=== PATIENT | female | born 1995 | race Caucasian/White ===

== ENCOUNTER → 2016-04-17 | Outpatient (CLI) | payer OTHER ==
[2016-04-20 14:14] LABS: CHLAMYDIA TRACH RNA*** NOT DETECTED (NOT DETECTED); GC (NEIS GONORRHOEAE)RNA** NOT DETECTED (NOT DETECTED)
== END | disposition home or self-care (01) ==
LOC: C.LABSPEC 17:12
PROVIDERS: ATTEND Obstetrics & Gynecology
DX: Z01.419 Encounter for gynecological examination (general) (routine) without abnormal findings (principal)

== ENCOUNTER → 2017-01-10 | Outpatient (CLI) | payer OTHER ==
--- NOTE | 2017-01-10 11:44 | DIAGNOSTIC IMAGING REPORT ---
L-SPINE MIN 4 VIEWS ROUTINE CLINICAL HISTORY: M54.5 low back pain COMPARISON STUDY: No previous studies for comparison. FINDINGS: No fractures or dislocations are visualized. No destructive lesions are identified. IMPRESSION: Unremarkable conventional radiographic evaluation of the lumbar spine Electronically signed by: Pablo Whitmore M.D. 01/10/2017 11:43 AM Dictated Date/Time: 01/10/2017 11:41 AM
--- NOTE | 2017-01-10 11:55 | DIAGNOSTIC IMAGING REPORT ---
SACRUM COCCYX MIN 2 VIEWS CLINICAL HISTORY: 21 years-old Female presenting with M54.5 low back pain, no trauma. TECHNIQUE: Frontal and lateral views of the sacrum and coccyx were obtained. COMPARISON: None. FINDINGS: Sacroiliac joints congruent and symmetric without evidence of erosion or degenerative change. Arcuate lines intact. Lower lumbar spine normal. No malalignment of the sacrococcygeal articulation. Slight deformity of the S5 level may represent chronic posttraumatic change. IMPRESSION: 1. Deformity of the S5 level may represent chronic posttraumatic change. Correlate with point tenderness. 2. No other evidence of acute osseous injury. Electronically signed by: Johnie Urbina M.D. 01/10/2017 11:53 AM Dictated Date/Time: 01/10/2017 11:52 AM
[2017-01-10 12:09] LABS: BASO % 0.3 %; BASO ABS # 0.02 K/uL (0-0.2); COMPLETE YES; EOS % 1.2 %; HEMATOCRIT 42.9 % (37-47); IG% 0.3 %; LYMPH % 24.7 %; LYMPH ABS # 1.64 K/uL (1.2-3.4); MEAN CELL VOLUME 92.5 fL (80-100); MEAN CORPUSCULAR HEMOGLOBIN 32.3 pg (25-34); MEAN PLATELET VOLUME 10.5 fL (7.4-10.4); MONO % 9.2 %; NEUT % 64.3 %; PLATELET COUNT 240 K/uL (130-400); RED BLOOD COUNT 4.64 M/uL (4.2-5.4); WHITE BLOOD COUNT 6.63 K/uL (4.8-10.8)
[2017-01-10 13:27] LABS: ALT/SGPT 23 U/L (12-78); AST/SGOT 15 U/L (15-37); BLOOD UREA NITROGEN 11 mg/dl (7-18); CARBON DIOXIDE 26 mmol/L (21-32); CHLORIDE 105 mmol/L (98-107); CHOLESTEROL 228 mg/dl (0-200); CREATININE 0.67 mg/dl (0.60-1.20); GLUCOSE,FASTING 83 mg/dl (70-99); SODIUM 139 mmol/L (136-145)
[2017-01-10 13:28] LABS: ALKALINE PHOSPHATASE 73 U/L (45-117); CHOLESTEROL/HDL RATIO 3.6; HDL CHOLESTEROL 64 mg/dl; LDL CHOLESTEROL CALCULATED 147 mg/dl; TRIGLYCERIDES 87 mg/dl (0-150); VERY LOW DENSITY LIPOPROT CALC 17 mg/dl
[2017-01-10 13:38] LABS: URINE APPEARANCE CLEAR (CLEAR); URINE BILIRUBIN NEG (NEG); URINE COLOR YELLOW; URINE NITRITE NEG (NEG); URINE PH 6.5 (4.5-7.5); URINE SPECIFIC GRAVITY 1.016 (1.000-1.030); UROBILINOGEN NEG (NEG)
[2017-01-10 13:47] LABS: MANUAL MICROSCOPIC REQUIRED? NO; REVIEW REQ? NO
== END | disposition home or self-care (01) ==
LOC: C.LAB 10:44
PROVIDERS: ATTEND Specialist
DX: Z00.00 Encounter for general adult medical examination without abnormal findings (principal); M54.5 Low back pain

== ENCOUNTER → 2017-01-25 | Outpatient (CLI) | payer OTHER | END | disposition home or self-care (01) | LOC: C.LABSPEC 14:41 | PROVIDERS: ATTEND Physician Assistant | DX: N89.8 Other specified noninflammatory disorders of vagina (principal) ==

== ENCOUNTER 2017-02-01 14:31 | Emergency (ER) | payer OTHER ==
[~2017-02-01] VITALS: Ht 162.6 cm; Wt 61.3 kg
[2017-02-01 14:43] VITALS: TEMP 36.8; Ht 162.6 cm; Wt 61.3 kg
[2017-02-01 15:22] LABS: BASO % 0.7 %; BASO ABS # 0.04 K/uL (0-0.2); COMPLETE YES; EOS % 0.5 %; HEMATOCRIT 41.5 % (37-47); IG% 0.2 %; LYMPH ABS # 1.83 K/uL (1.2-3.4); MEAN CORPUSCULAR HEMOGLOBIN 31.5 pg (25-34); MEAN CORPUSCULAR HGB CONC 34.2 g/dl (32-36); MEAN PLATELET VOLUME 9.5 fL (7.4-10.4); MONO % 6.8 %; NEUT % 58.8 %; PLATELET COUNT 245 K/uL (130-400); RED BLOOD COUNT 4.51 M/uL (4.2-5.4); WHITE BLOOD COUNT 5.55 K/uL (4.8-10.8)
--- NOTE | 2017-02-01 15:28 | EMERGENCY ROOM VISIT NOTE ---
History First contact with patient: 14:49 Chief Complaint: PELVIC PAIN Stated Complaint: VAGINAL CHANGES,CHILLS,CLAMMY,BACK AND PELVIC PAIN History of Present Illness The patient is a 21 year old female who presents to the Emergency Room with a main complaint of vaginal discharge for the last month. It is a yellow/green discharge. She is sexually active with one partner. She denies any fever or chills. No pain with intercourse. Her last menses was January 06. Her menses are regular. She uses control pills for contraception. The patient also complains of dizziness, shakiness and lightheadedness. The symptoms are intermittent. She denies any difficulty breathing or pain in her chest. The patient has seen multiple providers for her vaginal discharge. She was seen at to emergency departments, in addition to her JEWELRY ESTIMATOR doctor last Saturday. She has taken antibiotics for PID, UTI and was also given Diflucan for yeast infection. This did not seem to help her symptoms. The patient reports that her boyfriend is also experiencing dizziness, lightheadedness and shakiness. They do not live together, however she does spend a lot of time at his house. Review of Systems 10 system review performed and negative unless noted in HPI or below Past Medical/Surgical History Otherwise healthy Social History Smoking Status: Never Smoker Marital Status: in relationship Occupation Status: employed Current/Historical Medications Scheduled Control Pills ( Control Pills), 1 TAB PO DAILY Clotrimazole Vaginal (Clotrimazole), 1 APPLN VAGRING HS Multiple Vitamins W/ Minerals (Womens Multi Vitamin & Mi), 1 TAB PO DAILY Physical Exam Vital Signs Date Time Temp Pulse Resp B/P (MAP) Pulse Ox O2 Delivery O2 Flow Rate FiO2 02/01/17 18:17 72 16 124/72 98 Room Air 02/01/17 16:40 88 16 115/76 98 Room Air 02/01/17 15:18 116 16 130/88 98 Room Air 120 116/95 109 116/85 02/01/17 14:43 36.8 117 20 145/88 97 Room Air Physical Exam VITALS: Vitals are noted on the nurse's note and reviewed by myself. Vital signs stable. GENERAL: 81-year-old female, anxious in appearance SKIN: The skin was without rashes, erythema, edema, or bruising. HEAD: Normocephalic atraumatic. EYES: Pupils equal round and reactive to light and accommodation. Conjunctivae without injection, sclerae without icterus. Extraocular movements intact. MOUTH: Mucous membranes moist. NECK: Supple without nuchal rigidity. No lymphadenopathy. Cervical spine is nontender. No JVD. HEART: The cardiac, regular rhythm without murmurs gallops or rubs. LUNGS: Clear to auscultation bilaterally without wheezes, rales or rhonchi. No accessory muscle use. ABDOMEN: Positive bowel sounds x 4.Soft, nontender, without organomegaly. No guarding or rebound tenderness. : External genitalia free of any lesions or lacerations. Speculum exam reveals a moderate amount of white, chunky discharge in the vaginal vault. There is one area of friability on the cervix at approximately 11:00. The os is closed. Bimanual exam reveals no signs of cervical motion tenderness. MUSCULOSKELETAL: No muscle atrophy, erythema, or edema noted. Strength 5/5 throughout. NEURO: Patient was alert and oriented to person place and time. Normal sensation to touch. No focal neurological deficits. Medical Decision & Procedures ER Provider Diagnostic Interpretation: Pelvic ultrasound IMPRESSION: 1. Unremarkable sonographic appearance of the uterus and endometrium. 2. Ovaries appear normal without evidence of torsion. The above report was generated using voice recognition software. It may contain grammatical, syntax or spelling errors. Electronically signed by: Mitchell Peter M.D. 02/01/2017 4:15 PM Dictated Date/Time: 02/01/2017 4:12 PM The status of this report is Signed. Draft = Not yet reviewed or approved by Radiologist. Signed = Reviewed and approved by Radiologist. <AttendingPhy></AttendingPhy> <FamilyPhy>Soha Davis D.O.</FamilyPhy> < PrimaryPhy>Soha Davis D.O.</PrimaryPhy> <UnitNumber>[id number]</UnitNumber> <VisitNumber>[id number]</VisitNumber> <PatientName>KIRK CRAIG</ PatientName> <DateOfBirth>1995</DateOfBirth> <Location>[facility]</Location> < ServiceDate>02/01/17</ServiceDate> <MNE>ESINDI</MNE> <OrderingPhy>Ivory Kelly PA-C</OrderingPhy> <OrderingPhyMNE>f rep ord dr dewitt</OrderingPhyMNE> < DictatingPhyMNE>f rep dict dr dewitt</DictatingPhyMNE> <CCListMNE>f rep ct mne</ CCListMNE> <AdmittingPhyMNE>f pt admit dr dewitt</AdmittingPhyMNE> <AttendingPhyMNE >f pt attend dr dewitt</AttendingPhyMNE> <ConsultingPhyMNE>f pt consult dr dewitt</ConsultingPhyMNE> <FamilyPhyMNE>f pt fam dr dewitt</FamilyPhyMNE> <OtherPhyMNE>f pt other dr dewitt</OtherPhyMNE> < PrimaryPhyMNE>f pt prim care dr dewitt</PrimaryPhyMNE> <ReferringPhyMNE>f Laboratory Results 02/01/17 15:16 Red Blood Count 4.51, Mean Corpuscular Volume 92.0, Mean Corpuscular Hemoglobin 31.5, Mean Corpuscular Hemoglobin Concent 34.2, Mean Platelet Volume 9.5, Neutrophils (%) (Auto) 58.8, Lymphocytes (%) (Auto) 33.0, Monocytes (%) (Auto) 6.8, Eosinophils (%) (Auto) 0.5, Basophils (%) (Auto) 0.7, Neutrophils # (Auto) 3.26, Lymphocytes # (Auto) 1.83, Monocytes # (Auto) 0.38, Eosinophils # (Auto) 0.03, Basophils # (Auto) 0.04 02/01/17 15:16 Test 02/01/17 15:16 02/01/17 15:19 02/01/17 15:29 02/01/17 16:42 White Blood Count 5.55 K/uL (4.8-10.8) Red Blood Count 4.51 M/uL (4.2-5.4) Hemoglobin 14.2 g/dL (12.0-16.0) Hematocrit 41.5 % (37-47) Mean Corpuscular Volume 92.0 fL (80-100) Mean Corpuscular Hemoglobin 31.5 pg (25-34) Mean Corpuscular Hemoglobin Concent 34.2 g/dl (32-36) Platelet Count 245 K/uL (130-400) Mean Platelet Volume 9.5 fL (7.4-10.4) Neutrophils (%) (Auto) 58.8 % Lymphocytes (%) (Auto) 33.0 % Monocytes (%) (Auto) 6.8 % Eosinophils (%) (Auto) 0.5 % Basophils (%) (Auto) 0.7 % Neutrophils # (Auto) 3.26 K/uL (1.4-6.5) Lymphocytes # (Auto) 1.83 K/uL (1.2-3.4) Monocytes # (Auto) 0.38 K/uL (0.11-0.59) Eosinophils # (Auto) 0.03 K/uL (0-0.5) Basophils # (Auto) 0.04 K/uL (0-0.2) RDW Standard Deviation 41.3 fL (36.4-46.3) RDW Coefficient of Variation 12.3 % (11.5-14.5) Immature Granulocyte % (Auto) 0.2 % Immature Granulocyte # (Auto) 0.01 K/uL (0.00-0.02) D-Dimer 190 ug/L FEU (0-500) Anion Gap 5.0 mmol/L (3-11) Est Creatinine Clear Calc Drug Dose 104.4 ml/min Estimated GFR () 135.5 Estimated GFR (Non- 116.9 BUN/Creatinine Ratio 12.4 (10-20) Calcium Level 9.2 mg/dl (8.5-10.1) Total Bilirubin 0.3 mg/dl (0.2-1) Aspartate Amino Transf (AST/SGOT) 12 U/L (15-37) Alanine Aminotransferase (ALT/SGPT) 20 U/L (12-78) Alkaline Phosphatase 63 U/L (45-117) Total Protein 7.9 gm/dl (6.4-8.2) Albumin 4.1 gm/dl (3.4-5.0) Globulin 3.8 gm/dl (2.5-4.0) Albumin/Globulin Ratio 1.1 (0.9-2) Thyroid Stimulating Hormone (TSH) 3.040 uIu/ml (0.300-4.500) Human Chorionic Gonadotropin, Qual NEG (NEG) Lyme Disease IgG Antibody NEG (NEG) Lyme Disease IgM Antibody NEG (NEG) Urine Color YELLOW Urine Appearance CLEAR (CLEAR) Urine pH 6.0 (4.5-7.5) Urine Specific [place] 1.019 (1.000-1.030) Urine Protein NEG (NEG) Urine Glucose (UA) NEG (NEG) Urine Ketones NEG (NEG) Urine Occult Blood NEG (NEG) Urine Nitrite NEG (NEG) Urine Bilirubin NEG (NEG) Urine Urobilinogen NEG (NEG) Urine Leukocyte Esterase NEG (NEG) Carboxyhemoglobin 0.0 % [facility] Date/Time Source Procedure Growth Status 02/01/17 16:42 Cervix Swab Trichomonas Preparation - Final Complete Medications Administered Medications (Trade) Dose Ordered Sig/[place] Route Start Time Stop Time Status Last Admin Dose Admin Sodium Chloride 500 ml @ 999 mls/hr Q31M STAT IV 02/01/17 16:56 02/01/17 17:26 DC 02/01/17 16:56 999 MLS/HR ED Course Patient was seen and examined Vital signs including blood pressure were reviewed medications list was verified with patient Labs were obtained, and a saline lock was established Imaging was performed and reviewed The patient was hydrated with 500 mL normal saline Upon reevaluation, the patient was resting comfortably we discussed the results of her workup. She voiced understanding. I reviewed discharge instructions the patient. They voiced understanding and had no further questions. Medical Decision Differential diagnosis: STD, bacterial vaginosis, PID, vaginal candidiasis, carbon dioxide exposure, anemia, anxiety This patient is a 21-year-old female that presents the emergency department with a main complaint of vaginal discharge. She has also had lightheadedness, dizziness and shaking. On exam, she is very anxious in appearance. Pelvic exam was performed. She had, chunky white discharge consistent with yeast. No signs of PID. I did a full workup on the patient and she was complaining of dizziness and shaking. I considered etiologies such as carbon monoxide exposure given that her boyfriend had had similar symptoms. This was negative. I also checked a d-dimer. This was also negative. I believe that anxiety is playing a role in her symptoms. The patient was already treated with Diflucan a few days ago. She was given a prescription for clotrimazole to use for 7 days at night. She was instructed to follow-up with her primary care physician in addition to her JEWELRY ESTIMATOR. She is in agreement to return to the emergency department with any new, worsening or concerning symptoms This chart was completed in part utilizing [employer] Speech Voice Recognition software. Attempts were made to minimize the grammatical errors, random word insertions, pronoun errors and incomplete sentences. Any formal questions or concerns about the content, text or information contained within the body of this dictation should be directly addressed to the provider for clarification. Medication Reconcilliation Current Medication List: was personally reviewed by me Blood Pressure Screening Patient's blood pressure: Normal blood pressure Impression Primary Impression: Vaginal candidiasis Departure Information Dispostion Home / Self-Care Condition GOOD Prescriptions Clotrimazole Vaginal (CLOTRIMAZOLE) 1 % Cre 1 APPLN VAGRING HS, #7 APPLN Prov: Ivory Kelly PA-C 02/01/17 Referrals Soha Davis D.O. (PCP) Patient Instructions My [facility] Additional Instructions You were evaluated in the emergency department for back/pelvic pain and vaginal discharge. It appears that you still have a yeast infection. Please use clotrimazole 1 application vaginally at night for 7 days. No sexual activity for at least 7 days. For pain, please take ibuprofen 600 mg every 6 hours for the next 2 days. Please follow-up with your primary care physician in addition to your JEWELRY ESTIMATOR. They may want to do further studies. Try to stay well-hydrated Please return to the emergency department with any new, worsening or concerning symptoms.
[2017-02-01] MEDS ORDERED: MULT-603 PO (15:43)
[2017-02-01] MEDS ORDERED: BCPILLS PO (15:43)
[2017-02-01 15:46] LABS: BUN/CREATININE RATIO 12.4 (10-20); CALCIUM 9.2 mg/dl (8.5-10.1); CREATININE 0.73 mg/dl (0.60-1.20); POTASSIUM 3.6 mmol/L (3.5-5.1)
[2017-02-01 15:53] LABS: PREG INTERNAL NEGATIVE QC NEG CLEAR BACKGROUND; PREG INTERNAL POSITIVE QC POS CONTROL LINE
[2017-02-01 15:56] LABS: ALB/GLOB RATIO 1.1 (0.9-2); THYROID STIMULATING HORMONE 3.04 uIu/ml (0.300-4.500)
--- NOTE | 2017-02-01 16:17 | DIAGNOSTIC IMAGING REPORT ---
PELVIC COMPLETE NON OB HISTORY: 21 years-old Female pelvic pain, vaginal discharge acute pelvic pain with vaginal discharge COMPARISON: Sacrum radiographs 01/10/2017 TECHNIQUE: Multiple real-time sonographic images of the deep pelvic structures were obtained transabdominally and transvaginally assessing grayscale appearance, color and spectral flow FINDINGS: TRANSABDOMINAL: Anteflexed uterus measures 6.9 x 3.0 x 5.0 cm. Endometrium measures 0.3 cm. TRANSVAGINAL: Anteflexed uterus measures 7.0 x 3.1 x 4.1 cm. No myometrial mass lesions identified. Normal trilaminar appearance of the endometrium, 0.3 cm. Right ovary measures 2.5 x 1.5 x 2.0 cm and is within normal limits with arterial inflow documented. The left ovary measures 3.0 x 1.7 x 1.6 cm and is also within normal limits with arterial inflow documented. Evaluation of the ovaries however is mildly limited secondary to obscuring bowel gas. There is no significant free pelvic fluid. IMPRESSION: 1. Unremarkable sonographic appearance of the uterus and endometrium. 2. Ovaries appear normal without evidence of torsion. The above report was generated using voice recognition software. It may contain grammatical, syntax or spelling errors. Electronically signed by: Mitchell Peter M.D. 02/01/2017 4:15 PM Dictated Date/Time: 02/01/2017 4:12 PM
[2017-02-01 16:23] LABS: LYME DISEASE AB IGG NEG (NEG); LYME DISEASE AB IGM NEG (NEG)
[2017-02-01 16:46] LABS: URINE APPEARANCE CLEAR (CLEAR); URINE BILIRUBIN NEG (NEG); URINE COLOR YELLOW; URINE NITRITE NEG (NEG); URINE SPECIFIC GRAVITY 1.019 (1.000-1.030); UROBILINOGEN NEG (NEG)
[2017-02-01 16:50] LABS: MANUAL MICROSCOPIC REQUIRED? NO; REVIEW REQ? NO
[2017-02-01] MEDS ORDERED: CLOT1CRE3 VAGRING (16:54)
[2017-02-01] MEDS ORDERED: SODIUM CHLORIDE 0.9% 500ML 500 ML IV STA (16:56)
[2017-02-01 18:17] VITALS: BP 124/72; PULSE 72; O2SAT 98
[2017-02-05 02:06] LABS: CHLAMYDIA TRACH RNA*** NOT DETECTED (NOT DETECTED); GC (NEIS GONORRHOEAE)RNA** NOT DETECTED (NOT DETECTED)
== END 2017-02-01 18:50 | disposition home or self-care (01) ==
LOC: C.EDB 14:32
DX: B37.3 Candidiasis of vulva and vagina (principal); R42 Dizziness and giddiness

== ENCOUNTER → 2017-03-27 | Outpatient (CLI) | payer OTHER ==
[~2017-03-27] MED LIST: BCPILLS PO; CLOT1CRE3 VAGRING; MULT-603 PO
== END | disposition home or self-care (01) ==
LOC: C.PAPS 18:32
PROVIDERS: ATTEND Physician Assistant
DX: R10.2 Pelvic and perineal pain (principal); R87.612 Low grade squamous intraepithelial lesion on cytologic smear of cervix (LGSIL)

== ENCOUNTER → 2017-03-27 | Outpatient (CLI) | payer OTHER | END | disposition home or self-care (01) | LOC: C.LABSPEC 17:54 | PROVIDERS: ATTEND Physician Assistant | DX: R10.2 Pelvic and perineal pain (principal) ==